=== PATIENT | female | born 1995 | race Caucasian/White ===

== ENCOUNTER 2020-11-09 14:29 | Emergency (ER) | payer OTHER ==
[~2020-11-09] VITALS: Ht 152.4 cm; Wt 52.2 kg
[2020-11-09 14:33] VITALS: BP 120/99
--- NOTE | 2020-11-09 14:40 | NUR ---
AMBULATED TO BED 11
--- NOTE | 2020-11-09 14:49 | NUR ---
25/F presents to ED with c/o vomiting x3 days. Patient states she began having nausea and vomiting 3 days ago and has been unable to keep food or liquids down. Patient states she has intermittent abdominal pain, constipation and a 7/10 burning pain in her throat. States she has taken motion sickness pills for the nausea but states no relief as she is unable to keep it down. Abdomen is non tender to touch, denies pain right now. Patient denies dysuria and hematuria.
[2020-11-09] MEDS ORDERED: NACL 0.9% 1,000 ML IV ONE (15:25)
[2020-11-09] MEDS ORDERED: ONDANSETRON 4 MG/2 ML VIAL IVP ONE (15:25)
--- NOTE | 2020-11-09 15:27 | NUR ---
Patient being evaluated by Dr. Sprague at bedside.
[2020-11-09] MEDS ORDERED: KETOROLAC 30 MG/ML VIAL IVP ONE (15:30)
[2020-11-09 15:36] LABS: BASOPHILS % (AUTO) 0.5 % (0.0-2.0); EOSINOPHILS % (AUTO) 0.3 % (0.0-4.0); HEMOGLOBIN 13.1 g/dL (12.0-16.0); LYMPHOCYTES # (AUTO) 1.4 K/uL (2.5-16.5); LYMPHOCYTES % (AUTO) 22.4 % (20.5-51.1); MEAN CORPUSCULAR HEMOGLOBIN 30 pg (27-31); MEAN CORPUSCULAR HGB CONC 34 g/dL (33-37); MEAN CORPUSCULAR VOLUME 88.6 fL (80-94); MONOCYTES # (AUTO) 0.3 K/uL (0.8-1.0); MONOCYTES % (AUTO) 5.5 % (1.7-9.3); NEUTROPHILS # (AUTO) 4.5 K/uL (1.8-7.7); NEUTROPHILS % (AUTO) 71.3 % (42.2-75.2); PLATELET COUNT (AUTO) 408 K/uL (140-450); RED BLOOD CELL COUNT(AUTO) 4.41 MIL/uL (4.20-5.40); RED CELL DISTRIBUTION WIDTH 13.4 % (11.6-13.7); WHITE BLOOD COUNT (AUTO) 6.3 K/uL (4.8-10.8)
[2020-11-09 15:54] LABS: ANION GAP 17.8 (8-16); CARBON DIOXIDE 26.1 mmol/L (21-32); CREATININE 0.8 mg/dL (0.6-1.3); POTASSIUM 4.9 mmol/L (3.5-5.1); TOTAL BILIRUBIN 0.8 mg/dL (0.0-1.0)
[2020-11-09] MEDS ORDERED: PROM25TA27 PO (16:15)
[2020-11-09 16:22] VITALS: BP 120/99
--- NOTE | 2020-11-09 16:23 | NUR ---
Patient discharged with v/s stable. Written and verbal after care instructions given and explained. Patient alert, oriented and verbalized understanding of instructions. Ambulatory with steady gait. All questions addressed prior to discharge. ID band removed. Patient advised to follow up with PMD. Rx of Promethazine given. Patient educated on indication of medication including possible reaction and side effects. Opportunity to ask questions provided and answered.
== END 2020-11-09 16:23 | disposition home or self-care (01) ==
LOC: MED 14:29
DX: R11.2 Nausea with vomiting, unspecified (principal); R10.13 Epigastric pain; R42 Dizziness and giddiness
CPT/HCPCS: 36415; 80053; 81002; 81025; 83690; 85025; 96374; 96375; 99284; J1885; J2405; J7030